=== PATIENT | male | born 1970 | race Caucasian/White ===

== ENCOUNTER 2024-02-24 02:29 | Emergency (ER) | payer OTHER, SELFPAY ==
[2024-02-24 02:31] VITALS: BP 176/117
--- NOTE | 2024-02-24 03:16 | ED.GENMED ---
History of Present Illness
<TONA Bethea - Last Filed: 02/24/24 04:15>
General
Chief Complaint: Alcohol Problem
Source: patient
Exam Limitations: none
Time Seen by Provider: 02/24/24 02:59
Nursing documentation reviewed up to this point in time: agreed with
History of Present Illness
History of Present Illness:
Pt is a 54 yo M w/ PMH of alcohol abuse and HTN who presents to the ED w/ withdraw symptoms. He states he woke up from sleep about an hour ago, was very anxious and felt like his BP was high. He states he has been an alcoholic for 'decades now' and
attempted to quit a month ago when he was given phenobarbital by his PCP. He says he was sober for about a week on the medication, but then stopped it and began to drink again. He checked himself into rehab on Friday in an attempt to get help but
left late Friday night because he was worried about working and making money. He states he had 4-5 beers yesterday evening before going to bed. He is mildly nauseous now but states it is probably due to feeling anxious. Pt denies tobacco/illicit
drug use/abuse. Pt denies fever, [place], v/d, chest pain, SOB, dyspnea, and abdominal pain.
Review of Systems
<TONA Bethea - Last Filed: 02/24/24 04:15>
Review of Systems
Allergies reviewed?: Yes
Constitutional: Reports chills; Denies fever or fatigue
Respiratory: Denies cough or trouble breathing
Cardiac: Denies chest pain or palpitations
ABD/GI: Denies abdominal pain, nausea, vomiting or diarrhea
Neurological: Denies dizzy or headache
Phy Exam
<TONA Bethea - Last Filed: 02/24/24 04:15>
General Physical Exam
General Presentation: moderate distress
General age: appears stated age
General Skin: warm and dry
General Habitus: normal
General Mental: alert and anxious
General Hydration: appears well hydrated
Cardiovascular Exam
Cardiovascular Exam: no murmur and tachycardia
Pulmonary Exam
Pulmonary Exam: lungs clear and no respiratory distress
Respiratory Effort: tachypnea
Cough: no cough
Gastrointestinal Exam
Gastrointestinal Exam: non tender, soft and non distended
Neurological Exam
Neurological Exam: alert and oriented x3
<Tyrese Nation, - Last Filed: 02/24/24 05:14>
Physical Exam
Physical Exam:
Physical Exam
General: Tremulous cooperative 54 male
Neck: Without jaundice
Heart: s1/s2 regular rate and rhythm, no murmur. equal radial pulses.
Lungs: no acute respiratory distress. clear bilaterally
Abdomen: Nontender
Neuro: alert and oriented. no focal neurological deficits
Skin: no rash
Psychiatric: well kept. interactive and cooperative
Extremities: no edema.
Scores
<TONA Bethea - Last Filed: 02/24/24 04:15>
Withdrawal Assessment of Alcohol
Total CIWA Score: 16
Alcohol Withdrawal Medication Recommendation: Equal to MSAS Score 8-11. Lorazepam 1-2mg IV NOW & re-assess q1hr
<Tyrese Nation DO - Last Filed: 02/24/24 05:14>
Withdrawal Assessment of Alcohol
Withdrawal Assessment Completed?: Yes
Nausea and Vomiting: Mild nausea with no vomiting
Tactile Disturbances: Very mild itching, pins and needles, burning or numbness
Tremor: Moderate, with patient's arms extended
Auditory Disturbances: Not present
Paroxysmal Sweats: No sweat visible
Visual Disturbances: Very mild sensitivity
Anxiety: Moderately anxious, or guarded, so anxiety is inferred
Headache, Fullness in Head: Very mild
Agitation: Moderately fidgety and restless
Orientation and clouding of sensorium: Oriented and can do serial additions
Total CIWA Score: 16
Alcohol Withdrawal Medication Recommendation: Equal to MSAS Score 8-11. Lorazepam 1-2mg IV NOW & re-assess q1hr
Course
<Jeanine Vasquez, [facility] - Last Filed: 02/24/24 04:15>
Orders/Labs/Results
Orders:
Orders
02/24/24 03:16
Lorazepam [Ativan] 1 mg IV NOW STA
02/24/24 03:43
Complete Blood Count/With Diff Urgent
Comprehensive Metabolic Panel Urgent
Magnesium Urgent
02/24/24 04:00
0.9% Sodium Chloride 1000 ml [Nss] 1,000 ml Mvi, Adult [Multivitamin] 10 ml Thiamine Injection 100 mg IV 250 mls/hr
Abnormal Lab Results
02/24/24
03:43
WBC 4.1 L 10^3/uL
(4.8-10.8)
RBC 4.04 L 10^6/uL
(4.70-6.10)
MCV 97.0 H fL
(80.0-94.0)
MCH 33.2 H pg
(27.0-31.0)
Monocytes % 12.6 H %
(1.7-9.3)
Potassium 5.5 H mmol/L
(3.5-5.1)
02/24/24 03:43
02/24/24 03:43
Vital Signs
Initial and Last Documented VS:
Initial Vital Signs
Temp Pulse Resp BP Pulse Ox
97.8 F 110 20 176/117 97
02/24/24 02:31 02/24/24 02:31 02/24/24 02:31 02/24/24 02:31 02/24/24 02:31
Last Documented Vital Signs
Temp Pulse Resp BP Pulse Ox
97.8 F 110 20 176/117 97
02/24/24 02:31 02/24/24 02:31 02/24/24 02:31 02/24/24 02:31 02/24/24 02:31
<Tyrese Nation, DO - Last Filed: 02/24/24 05:14>
Orders/Labs/Results
Orders:
Orders
02/24/24 03:16
Lorazepam [Ativan] 1 mg IV NOW STA
02/24/24 03:43
Complete Blood Count/With Diff Urgent
Comprehensive Metabolic Panel Urgent
Magnesium Urgent
02/24/24 04:00
0.9% Sodium Chloride 1000 ml [Nss] 1,000 ml Mvi, Adult [Multivitamin] 10 ml Thiamine Injection 100 mg IV 250 mls/hr
Abnormal Lab Results
02/24/24
03:43
WBC 4.1 L 10^3/uL
(4.8-10.8)
RBC 4.04 L 10^6/uL
(4.70-6.10)
MCV 97.0 H fL
(80.0-94.0)
MCH 33.2 H pg
(27.0-31.0)
Monocytes % 12.6 H %
(1.7-9.3)
Potassium 5.5 H mmol/L
(3.5-5.1)
02/24/24 03:43
02/24/24 03:43
Vital Signs
Initial and Last Documented VS:
Initial Vital Signs
Temp Pulse Resp BP Pulse Ox
97.8 F 110 20 176/117 97
02/24/24 02:31 02/24/24 02:31 02/24/24 02:31 02/24/24 02:31 02/24/24 02:31
Last Documented Vital Signs
Temp Pulse Resp BP Pulse Ox
97.8 F 110 20 176/117 97
02/24/24 02:31 02/24/24 02:31 02/24/24 02:31 02/24/24 02:31 02/24/24 02:31
<Tyrese Nation DO - Last Filed: 02/24/24 05:14>
MDM/Problems Addressed
Differential Diagnosis Includes:
Alcohol withdrawal alcohol delirium delirium tremens impending DTs
MDM/Problems Addressed:
Alcohol withdrawal
Chronic conditions affecting care:
Hypertension alcoholism
Acute Exacerbation and/or Progression of Chronic Illness:
Hypertension alcoholic
<TONA Bethea - Last Filed: 02/24/24 04:15>
*Critical Care Note
Total Time (30-74mins, 75-104mins- exclusive of procedures): Not Applicable
<TONA Bethea - Last Filed: 02/24/24 04:15>
Update Note
Update Note:
02/24/24 @ 04:13am: Pt reports he is feeling less anxious and jittery after administration of medication and beginning fluids; He is resting comfortably; will continue to monitor - AD
<Tyrese Nation DO - Last Filed: 02/24/24 05:14>
Update Note
Update Note:
02/24/24 @ 04:13am: Pt reports he is feeling less anxious and jittery after administration of medication and beginning fluids; He is resting comfortably; will continue to monitor - AD
5:15 AM update, patient feeling well, vital signs are normalized, he has prescription meds at home again offered evaluation for placement for rehab he states he would like to do it at home
ED Attending Note
<TONA Bethea - Last Filed: 02/24/24 04:15>
-
Portions of this chart may have been created with voice recognition software.� Occasional wrong word or��sound alike� substitutions may have occurred due to the inherent limitations of voice recognition software.
<Tyrese Nation, DO - Last Filed: 02/24/24 05:14>
ED Attending Note
Patient seen and examined by attending physician: Yes
ED Attending Note:
Seen with student examined independently 54-year-old male hypertensive alcoholic was in rehab left, has phenobarbital at home from his PCP today woke up felt panicky, blood pressure was up also was appears tremulous normal mental status, does not
appear to be intoxicated, will hydrate check electrolytes, give a dose of lorazepam I did offer suggest that he go back to rehab he politely declined states he needs to get to work he states that he is plugged in with facilities near his home
Discharge Plan
Departure
Patient Disposition: Home (Routine Discharge)
Date of Disposition: 02/24/24
Time of Disposition: 05:13
Patient with high blood pressure during this ER visit?: Yes
Condition: Good
Discharge Problem:
Alcohol withdrawal
Instructions: Alcohol Withdrawal (DC), BLOOD PRESSURE
Referrals:
PRIVATE,PHYSICIAN [Family Provider] -
Activity Restrictions/Additional Instructions:
Follow-up with the facilities which you have beem seen previously, your primary care provider
Return to the ER for worsening symptoms or any other concerns
Interventions
Interventions:
*Risk Screen - Suicide Last Done: 02/24/24 02:31
*General Assessment Last Done: 02/24/24 02:31
*Neglect/Abuse Screening Last Done: 02/24/24 02:31
*ED COVID-19 Vaccine History Last Done: 02/24/24 02:31
ED- Neurological Assessment Last Done: 02/24/24 03:58
ED-Psychological Assessment Last Done: 02/24/24 04:01
Discharge Date and Time
Print Language: FAROESE
[2024-02-24] MEDS: MULTIVITAMIN 1011 ML IV (03:30)
[2024-02-24] MEDS: MULTIVITAMIN 1011 MG IV (03:30)
[2024-02-24] MEDS: ATIVAN 1 MG IV (03:49)
[2024-02-24 03:54] LABS: % Basophils 1.2 % (0-2); % Eosinophils 2.9 % (0-6); % Immature Granulocytes 0.5 % (0-0.5); % Lymphocytes 31.2 % (20.5-51.1); % Monocytes 12.6 % (1.7-9.3); % Neutrophils 51.6 % (42.2-75.2); Absolute Basophils 0.1 10^3/uL (0-0.2); Absolute Eosinophils 0.1 10^3/uL (0-0.7); Absolute Lymphocytes 1.3 10^3/uL (1.2-3.4); Absolute Monocytes 0.5 10^3/uL (0.1-0.6); Absolute Neutrophils 2.1 10^3/uL (1.4-6.5); Hematocrit 39.2 % (39.0-52.0); Hemoglobin 13.4 g/dL (13.0-18.0); Mean Corp Hgb Conc. 34.2 g/dL (33.0-37.0); Mean Corpuscular Hgb 33.2 pg (27.0-31.0); Mean Platelet Volume 9.8 fL (7.4-10.4); Nucleated Red Blood Cells % 0 % (-); Platelet Count 248 10^3/uL (130-400); Red Blood Cell Count 4.04 10^6/uL (4.70-6.10); Red Cell Dist. Width 13.9 % (11.5-14.5); White Blood Cell Count 4.1 10^3/uL (4.8-10.8)
--- NOTE | 2024-02-24 03:58 | EDRN ---
called pharm for meds iv-miroslava nguyen
[2024-02-24 04:00] VITALS: BP 122/98
[2024-02-24 04:12] LABS: ALT (SGPT) 33 U/L (0-50); AST (SGOT) 32 U/L (17-59); Albumin 4.8 g/dl (3.5-5.0); Alkaline Phosphatase 75 U/L (38-126); Blood Urea Nitrogen 12 mg/dl (9-20); Calcium 10.2 mg/dl (8.4-10.2); Carbon Dioxide 28 mmol/L (22-30); Chloride 104 mmol/L (98-107); Glucose 93 mg/dl (70-99); Magnesium 2.2 mg/dl (1.6-2.3); Potassium 5.5 mmol/L (3.5-5.1); Sodium 140 mmol/L (135-145); Total Bilirubin 0.7 mg/dl (0.2-1.3); Total Protein 7.4 g/dl (6.3-8.2); eGFR > 60.00
[2024-02-24 04:30] VITALS: BP 129/95
[2024-02-24 05:00] VITALS: BP 117/86
[2024-02-24 05:20] VITALS: BMI 32.2
== END 2024-02-24 05:45 | disposition home or self-care (01) ==
LOC: EMR 02:29
PROVIDERS: EMERGENCY PHYSICIAN Emergency Medicine
DX: F10.139 Alcohol abuse with withdrawal, unspecified (principal); I10 Essential (primary) hypertension
CPT/HCPCS: 99284; 96365; 96366; 96375; 80053; 83735; 85025

== ENCOUNTER 2024-09-26 01:16 | Inpatient (IN) | payer OTHER, SELFPAY ==
[2024-09-25 21:48] VITALS: BP 132/91
[2024-09-25 22:09] VITALS: BP 116/93
[2024-09-25 22:14] VITALS: BMI 32.3
--- NOTE | 2024-09-25 22:17 | EDRN ---
Pt says he relapsed with alcohol few weeks ago after 5-6 month of sobriety. This week, pt tried to stop couple times without success. Pt has antabuse but says he cannot take it because it makes him very ill when he drinks. Pt knows the amount of
drinking he has been doing will have withdrawal. Pt drinking beer and liquor up to couple pints of liquor daily, 10-15 beers. Last drink few hours ago. Pt has pressure in his ears, 'anxiety is through the roof' nausea, ringing in ears and
headache. Pt knows if he goes to sleep he will wake and have to come here or drink again.
--- NOTE | 2024-09-25 22:23 | EDRN ---
'I don't want to have a stroke or a seizure' Pt says last time he got sober he did it with medication then stopped the medication. Pt's family doctor reportedly told pt if he relapses he 'will have to go somewhere.' Pt says 'I just want to cut if
off for good.' Pt says he has until Friday to go somewhere and be detoxed because he has to go to work.
[2024-09-25] MEDS: ATIVAN 2 MG IV (22:36)
--- NOTE | 2024-09-25 22:42 | EDRN ---
Noted old adhesive from pvc monitor on pt's R abdomen. Pt said he was in [facility] ED for alcohol withdrawal and admitted overnight. Pt says he was discharged home with no prescriptions and the withdrawal symptoms returned so he drank. This
was 'a few days' ago. Pt unsure exactly when he was there.
[2024-09-25 23:00] VITALS: BP 93/72
--- NOTE | 2024-09-25 23:21 | ED.GENMED ---
History of Present Illness
General
Chief Complaint: Alcohol Problem
Source: patient
Exam Limitations: none
Time Seen by Provider: 09/25/24 22:26
Nursing documentation reviewed up to this point in time: agreed with
History of Present Illness
History of Present Illness:
Note:
CHIEF COMPLAINT(S)
Alcohol withdrawal management
HISTORY OF PRESENT ILLNESS
The patient is a 54-year-old male with a history of alcohol use who presents for management of alcohol withdrawal symptoms. He reports abstaining from alcohol for six months, during which time he felt his life was 'very, very good.' However, two
weeks ago, he resumed drinking and states he 'drank to the point where cutting it off is just not safe.' He has been trying to manage his symptoms at home and has Antabuse (disulfiram) available. He requests assistance to safely manage his symptoms
over the next 24 to 48 hours.
The patient reports experiencing high blood pressure spikes during withdrawal, noting a recent episode of 180/110 mmHg at 2 a.m., accompanied by a pounding heart. He denies a history of confirmed seizures but mentions experiencing 'bad withdrawals'
which were 'borderline.' He expresses willingness to admit for monitoring and management of withdrawal symptoms.
CHRONIC MEDICAL CONDITIONS SIGNIFICANTLY AFFECTING CARE
Hypertension, currently experiencing high blood pressure during withdrawal.
SOCIAL DETERMINANTS AFFECTING HEALTH
The patient reports having no family support at home, which concerns him as he wakes up with elevated blood pressure at night. He also mentions being resourceful and proactive in seeking outpatient resources after previous experiences, acknowledging
a previous lack of engagement in ongoing care post-recovery.
MEDICATIONS
Antabuse (disulfiram) is available at home.
REVIEW OF SYSTEMS
- Cardiovascular: Reports episodes of high blood pressure and pounding heart during withdrawal.
PHYSICAL EXAM
General: Alert, no acute distress.
Skin: Warm, dry.
Head: Normocephalic, atraumatic.
Neck: Supple, trachea midline.
Eye, Ears, Nose, Mouth, and Throat: Oral mucosa moist.
Cardiovascular: Normal peripheral perfusion, No edema.
Respiratory: Respirations are non-labored.
Gastrointestinal: Abdomen nondistended.
Back: Normal range of motion, Normal alignment.
Musculoskeletal: Normal ROM, normal strength.
Neurological: Alert and oriented to person, place, time, and situation, No focal neurological deficit observed.
Psychiatric: Cooperative, appropriate mood & affect.
PLAN
1. Admit the patient for monitoring and management of alcohol withdrawal symptoms.
2. Administer intravenous fluids to maintain hydration and raise blood pressure slightly.
3. Consult [facility] recovery and addiction resources to establish a sustainable outpatient plan post-discharge.
4. Monitor blood pressure closely, and address hypertensive episodes as needed.
5. Consider the use of medications for acute withdrawal symptoms under close supervision.
DIFFERENTIAL DIAGNOSIS
The Differential Diagnosis includes, in no particular order and is not limited to:
1. Alcohol withdrawal syndrome
2. Essential hypertension
3. Alcohol-induced hypertension
4. Anxiety disorder
5. Panic attacks
6. Essential tremor
7. Cardiac arrhythmia
8. Gastroesophageal reflux disease (GERD)
9. Sleep apnea
10. Acute stress reaction
Disposition:
SUMMARY OF ENCOUNTER
The patient is a 54-year-old male presenting for management of alcohol withdrawal symptoms after resuming drinking two weeks ago following a six-month period of abstinence. He expressed concern about experiencing withdrawal symptoms without hospital
support due to a lack of social support at home. There is no history of confirmed alcohol withdrawal seizures, but the patient is apprehensive about withdrawal management at home.
DISPOSITION
Admit
ASSESSMENT
Alcohol withdrawal syndrome requiring inpatient monitoring and support for safe management.
PLAN
1. Admit the patient for monitoring and management of alcohol withdrawal symptoms.
2. Administer intravenous fluids to maintain hydration.
3. Closely monitor blood pressure and manage hypertensive episodes as needed.
4. Consult [facility] recovery and addiction resources to establish a sustainable outpatient plan post-discharge.
MEDICAL DECISION MAKING
1. Number and Complexity of Problems Addressed: Chronic conditions affecting care include alcohol withdrawal syndrome and hypertension. The differential diagnosis includes:
- Alcohol withdrawal syndrome
- Essential hypertension
- Alcohol-induced hypertension
- Anxiety disorder
- Panic attacks
- Essential tremor
- Cardiac arrhythmia
- Gastroesophageal reflux disease (GERD)
- Sleep apnea
- Acute stress reaction
2. Data:
- Category 1: There was a discussion on the patients condition and the need to admit for monitoring.
- Category 3: The hospitalist service was consulted for the admission plan.
3. Risk: The decision to admit the patient for inpatient care was made due to the moderate to high risk of complications from alcohol withdrawal, including potential severe hypertension and withdrawal symptoms that could lead to seizures or other
serious health issues.
DIAGNOSIS
1. F10.239 - Alcohol withdrawal, uncomplicated
2. I10 - Essential (primary) hypertension
Phy Exam
Physical Exam
Physical Exam:
.
Scores
Withdrawal Assessment of Alcohol
Withdrawal Assessment Completed?: Yes
Nausea and Vomiting: Mild nausea with no vomiting
Tactile Disturbances: Very mild itching, pins and needles, burning or numbness
Tremor: Moderate, with patient's arms extended
Auditory Disturbances: Not present
Paroxysmal Sweats: Beads of sweat obvious on forehead
Visual Disturbances: Not present
Anxiety: Mild anxiety
Headache, Fullness in Head: Mild
Agitation: Moderately fidgety and restless
Orientation and clouding of sensorium: Oriented and can do serial additions
Total CIWA Score: 17
Alcohol Withdrawal Medication Recommendation: Equal to MSAS Score 8-11. Lorazepam 1-2mg IV NOW & re-assess q1hr
Course
Orders/Labs/Results
Orders:
Orders
09/25/24 22:26
Lorazepam [Ativan] 2 mg IV NOW STA
09/25/24 23:20
Lorazepam [Ativan] 1 mg IV NOW STA
09/25/24 23:23
Alcohol Urgent
Complete Blood Count/With Diff Urgent
Comprehensive Metabolic Panel Urgent
09/26/24 00:54
EKG [Electrocardiogram (*1)] Urgent
Reason for Study: Tachycardia
09/26/24 01:00
0.9% Sodium Chloride 1000 ml [Nss] 1,000 ml Mvi, Adult [Multivitamin] 10 ml Thiamine Injection 100 mg IV 250 mls/hr
09/26/24 01:01
Admit/Transfer Patient As Directed
Co-Sign Provider:
Level of Care: Inpatient admission
Assign to:: Telemetry
Physician / Group: Bulmaro
Diagnosis: Alcohol Withdrawal
Reason for Telemetry: Arrhythmia
Date to Stop Telemetry: 09/29/24
Time to Stop Telemetry: 11:00
Reason for Hospitalization: Alcohol Withdrawal
Expected length of stay greater than two midnights?: Yes
ELOS- Estimated Length of Stay in days: 3
I certify the patient meets the requirements for IP care: Yes
PRN Pain Medication Management As Directed
May give lesser potent ordered pain med per pt: Yes
preference::
Protocol:: Medication orders for pain may be administered in a
manner that supports deferring to patient preference
when the pt is:
- Requesting an ordered lesser potent pain medication.
Least to most potent pain medications are defined
as: acetaminophen < NSAID < tramadol < opioids
(morphine, oxycodone, hydromorphone).
- Requesting a lesser dose of the same medication IF
ORDERED.
- Requesting a less intrusive route of administration
if both routes are prescribed by the provider (PO <
IV).
09/26/24 01:02
Code Status As Directed
Resuscitation Status: Full Code
09/26/24 01:50
0.9% Sodium Chloride [Nss (Preservative Free)] See Protocol IV PRN PRN
Acetaminophen [Tylenol] 650 mg PO Q4HPRN PRN
FOLic ACID [Folvite] 1 mg 0.9% Sodium Chloride 50 ml [Nss] 50 ml IV DAILYPRN
Lorazepam [Ativan] 1 mg IV Q1HPRN PRN
Lorazepam [Ativan] 1 mg PO Q2HPRN PRN
Lorazepam [Ativan] 2 mg IV Q1HPRN PRN
Ondansetron Injectable [Zofran] 4 mg IV Q6HPRN PRN
09/26/24 01:50
Case Management Consult Once
Case Management Consult: Other
Requested By:: NURSING
Comment: Substance abuse counseling
DIETARY IP CONSULT Routine
Reason for Consult: Nutrition support, possible refeeding guidelines
Urinalysis Routine
Urine Drug Abuse Screen Routine
Activity As Directed
Activity Level: Ambulate
EKG with chest pain [ECG as needed] As Directed
ECG as needed for:: Chest Pain
I/O [Intake/ Output] As Directed
Frequency: Per unit guidelines
MSAS SCORE As Directed
MSAS Score 0-4: Repeat MSAS every 2 hours until 0-4 for three consecutive assessments, then every 4 hours x 48
hours.
MSAS Score 5-7: For MILD withdrawl symptoms. Repeat MSAS and RASS every 2 hours
MSAS Score 8-11: For MODERATE withdrawal symptoms. Repeat MSAS and RASS every 1 hour. Consider ICU or IMU
level of care.
MSAS Score > 11: For SEVERE withdrawal symptoms. Repeat MSAS and RASS every 1 hour. Notify provider, consider
ICU level of care.
MSAS Additional Instructions: If no improvement or no decrease in score from severe to moderate within 12
hours, consult psychiatry
MSAS Notify Provider: Notify provider if patient requires more than 10 mg of Lorazepam in eight hour period.
Pneumatic Compression Sleeves As Directed
Type: Knee high
Precautions As Directed
Type of Precautions: Seizure
Vital Signs As Directed
Frequency: Per unit guidelines
Weight As Directed
Frequency: Daily
Oxygen Therapy [O2 Therapy] [RESP] Routine
Titrate/Wean O2 to maintain O2 sat greater than (%): 94
DX Deep Vein Thrombosis Video Routine
09/26/24 02:00
Lactated Ringers [Lr] 1,000 ml IV 150 mls/hr
09/26/24 06:00
EKG [Electrocardiogram (*1)] IN AM
Reason for Study: Chest Pain
Clear Liquid
At Your Request: Full Participation
Complete Blood Count/No Diff IN AM
Magnesium IN AM
Phosphorus IN AM
09/26/24 08:00
FOLic ACID [Folvite] 1 mg PO DAILY
Pantoprazole [Protonix IV] 40 mg IV DAILY
Thiamine Injection 200 mg IV Q12
09/29/24 08:00
Thiamine HCl [Vitamin B1] 100 mg PO BID
09/29/24 11:00
DC Protocol for Telemetry ONCE
Abnormal Lab Results
09/26/24
00:17
MCH 32.6 H pg
(27.0-31.0)
Monocytes % 9.5 H %
(1.7-9.3)
09/26/24 00:17
09/26/24 00:17
Vital Signs
Initial and Last Documented VS:
Initial Vital Signs
Temp Pulse Resp BP Pulse Ox
98.1 F 114 15 132/91 94
09/25/24 21:48 09/25/24 21:48 09/25/24 21:48 09/25/24 21:48 09/25/24 21:48
Last Documented Vital Signs
Temp Pulse Resp BP Pulse Ox
97.7 F 103 20 134/93 95
09/26/24 02:02 09/26/24 02:02 09/26/24 02:02 09/26/24 02:02 09/26/24 02:02
*Pulse Oximetry
SaO2: 94
Oxygen Mode of Delivery: Room air
Patient hypoxic: no
*Critical Care Note
Total Time (30-74mins, 75-104mins- exclusive of procedures): Not Applicable
ED Attending Note
-
Portions of this chart may have been created with voice recognition software.� Occasional wrong word or��sound alike� substitutions may have occurred due to the inherent limitations of voice recognition software.
Discharge Plan
Departure
Patient Disposition: Admit
Date of Disposition: 09/25/24
Time of Disposition: 23:23
Admit to: Telemetry
Presentation/result/management discussed w/ accepting MD/DO: Hospitalist
Condition: Good
Discharge Problem:
Alcohol withdrawal
Interventions
Interventions:
*Risk Screen - Suicide Last Done: 09/26/24 02:04
*General Assessment Last Done: 09/25/24 21:48
*Neglect/Abuse Screening Last Done: 09/25/24 21:48
*ED- Fall Risk Assessment Last Done: 09/25/24 22:14
*Nursing Disposition Last Done: 09/26/24 01:46
ED- Neurological Assessment Last Done: 09/25/24 22:27
Discharge Date and Time
Discharge Date/Time: 09/26/24 01:46
[2024-09-26] VITALS (9 sets, daily range): BP systolic 102–155; BP diastolic 62–104; BMI 32.0; BMI 32.1
--- NOTE | 2024-09-26 00:08 | EDRN ---
Called pharmacy for IVF
[2024-09-26] MEDS: ATIVAN 1 MG IV ×2 (00:17→16:50)
[2024-09-26] MEDS: MULTIVITAMIN 1011 MG IV (00:33)
[2024-09-26] MEDS: MULTIVITAMIN 1011 ML IV (00:33)
[2024-09-26 00:43] LABS: ALT (SGPT) 42 U/L (0-50); AST (SGOT) 30 U/L (17-59); Albumin 4.5 g/dl (3.5-5.0); Alkaline Phosphatase 66 U/L (38-126); Blood Urea Nitrogen 14 mg/dl (9-20); Calcium 9.1 mg/dl (8.4-10.2); Carbon Dioxide 23 mmol/L (22-30); Chloride 107 mmol/L (98-107); Estimated Creatinine Clearance > 125 ml/min; Glucose 97 mg/dl (70-99); Potassium 3.9 mmol/L (3.5-5.1); Sodium 136 mmol/L (135-145); Total Protein 7.0 g/dl (6.3-8.2); eGFR > 60.00
--- NOTE | 2024-09-26 01:04 | HPS.HSE ---
Family Physician
-
Family Physician: * NONE
Chief Complaint
-
Alcohol Withdrawal
History of Present Illness
Patient is a 54y M with PMH significant for hypertension and alcohol use disorder who presents to ED complaining of alcohol withdrawal symptoms. Patient states that he had been sober for about 6 months. Approximately 3 weeks ago he started
drinking again. He has been drinking approximately 18 beers and 1 bottle of vodka daily. his last drink was about 6 hours ago.
He reports nausea, tremulousness and anxiety that started within an hour of his last drink.
He has had similar symptoms in the past.
Medical History
Past Medical History
Past Medical History: Reports Other
Additional Past Medical History:
Hypertension
Alcohol Use Disorder
Past Surgical History: Reports Other
Additional Past Surgical History:
Knee Arthroscopy
ACL Repair
Cardiac Cath (clean)
Social History
Tobacco: Non-smoker
Alcohol: Daily
Drug: None
Family History
Family History: Other (Father: CVA at age 48.)
Allergies / Home Medications
Allergies reflects when Allergies were last updated in [employer].
Home Medications with original date entered in [employer]
Allergy/Medication List:
Allergies
Allergy/AdvReac Type Severity Reaction Status Date / Time
levofloxacin (From Levaquin) Allergy Rash Verified 09/25/24 22:16
Home Medications
losartan 100 mg-hydrochlorothiazide 25 mg tablet 1 tab PO DAILY 09/25/24
testosterone 1.62 % (20.25 mg/1.25 gram) transdermal gel packet 1 packet transdermal DAILY 09/25/24
Review of Systems
-
History Source: Patient
A 12 point ROS was completed and negative except as noted: Yes
Constitutional: Reports Fatigue; Denies Fever or Chills
EENT: Denies Sore Throat or Runny Nose
Respiratory: Denies Cough or Trouble Breathing
Cardiac: Reports Palpitations; Denies Chest Pain
Abdomen/GI: Reports Nausea; Denies Abdominal Pain, Vomiting, Diarrhea or Constipated
: Denies Dysuria or Frequency
Musculoskeletal: Denies Joint Pain or Edema
Neurological: Reports Headache; Denies Dizzy
Psych: Reports Anxiety; Denies Depression
Physical Exam
Vital Signs
Vital Signs
Temp Pulse Resp BP Pulse Ox
98.1 F 95 19 102/62 94
09/25/24 21:48 09/26/24 00:00 09/26/24 00:00 09/26/24 00:00 09/25/24 23:23
Physical Exam
General: Other (54y M in mild distress due to nausea, tremulousness.)
HEENT: Moist mucous membranes and PERRLA
Respiratory: Clear; No Wheezes, Rales or Rhonchi
Cardiac: S1/S2 and Regular Rhythm; No Murmur
GI: Soft, Non Tender, Non Distended and Normal Bowel Sounds
Musculoskeletal: No Clubbing, No Cyanosis and No Edema
Neuro: AO x 3 and Other (Mildly tremulous.)
Laboratory Results
-
09/26/24 00:17
Laboratory Results
Total Bilirubin 0.6 mg/dl (0.2-1.3) 09/26/24 00:17
AST 30 U/L (17-59) 09/26/24 00:17
ALT 42 U/L (0-50) 09/26/24 00:17
Alkaline Phosphatase 66 U/L (38-126) 09/26/24 00:17
Impression/Plan
-
A/P: Patient is a 54y M with PMH significant for alcohol use disorder and hypertension who presents to ED for symptoms of alcohol withdrawal.
Alcohol Use Disorder
Alcohol Withdrawal Syndromes
- Admit for further evaluation and treatment.
- MSAS protocol with PRN BZDs.
- IVF support, MVI, thiamine, etc.
- Follow for clinical improvement.
- Patient indicates that he is not interested in inpatient rehab options.
- Previously worked with his PCP using Antabuse, etc to achieve / maintain sobriety.
Benign Hypertension
- BP on the lower side at present.
- Hold home meds for now and resume when appropriate.
DVT Prophylaxis: SCDs
Code Status: Full
[2024-09-26 01:21] LABS: Hematocrit 43.6 % (39.0-52.0); Hemoglobin 15.5 g/dL (13.0-18.0); Mean Corp Hgb Conc. 35.6 g/dL (33.0-37.0); Mean Corpuscular Volume 91.8 fL (80.0-94.0); Nucleated Red Blood Cells % 0.4 % (-); Platelet Count 183 10^3/uL (130-400); Red Cell Dist. Width 11.8 % (11.5-14.5)
--- NOTE | 2024-09-26 02:15 | PTCARENOTE ---
Patient from the ED arrived on a stretcher and ambulated to the bedside with min assist. AAOx3, he was assessed and oriented to the unit. He has a headache; IVF infusing. Patient verbalized an understanding to ring for all transfers. Patient
demonstrated how to use call monsalve. Call monsalve in reach. Will reach out to covering provider about headache.
[2024-09-26] MEDS: ATIVAN 1 MG PO ×5 (03:03→23:20)
[2024-09-26] MEDS: FIORICET 1 TAB PO (03:03)
[2024-09-26] MEDS: LR 1000 IV ×2 (04:17→10:25)
--- NOTE | 2024-09-26 06:19 | PTCARENOTE ---
EKG results reported to covering provider.
[2024-09-26 06:39] LABS: Urine Character Clear (Clear)
[2024-09-26 06:50] LABS: Hematocrit 43.1 % (39.0-52.0); Hemoglobin 15.1 g/dL (13.0-18.0); Mean Corp Hgb Conc. 35.0 g/dL (33.0-37.0); Mean Corpuscular Volume 93.9 fL (80.0-94.0); Platelet Count 161 10^3/uL (130-400); Red Cell Dist. Width 11.9 % (11.5-14.5)
[2024-09-26 07:10] LABS: ALT (SGPT) 41 U/L (0-50); AST (SGOT) 26 U/L (17-59); Albumin 3.8 g/dl (3.5-5.0); Alkaline Phosphatase 64 U/L (38-126); Blood Urea Nitrogen 14 mg/dl (9-20); Calcium 8.7 mg/dl (8.4-10.2); Carbon Dioxide 28 mmol/L (22-30); Chloride 106 mmol/L (98-107); Estimated Creatinine Clearance 125 ml/min; Glucose 95 mg/dl (70-99); Magnesium 1.9 mg/dl (1.6-2.3); Potassium 4.5 mmol/L (3.5-5.1); Sodium 137 mmol/L (135-145); Total Protein 6.3 g/dl (6.3-8.2); eGFR > 60.00
[2024-09-26] MEDS: TORADOL 15 MG IV (08:50)
[2024-09-26] MEDS: NSS (PRESERVATIVE FREE) 10 ML IV (08:50)
[2024-09-26] MEDS: THIAMINE INJECTION 200 MG IV ×2 (08:50→20:00)
[2024-09-26] MEDS: PROTONIX IV 40 MG IV (08:50)
[2024-09-26] MEDS: FOLVITE 1 MG PO (08:51)
[2024-09-26] MEDS: IMITREX 50 MG PO (10:24)
[2024-09-26] MEDS: COZAAR 50 MG PO (11:41)
--- NOTE | 2024-09-26 14:24 | CM ---
Initial assessment completed with pt at bedside.
Pt is a 54yr old male admitted with alcohol dependence and withdrawal
At baseline, pt lives alone in a multi level home with 2 steps to enter. Pt works, drives, and is physically active.
Pt self reports that he had been sober for 6 months, and recently has had life changes that led to a relapse over the last 3 weeks to a month, and needs assistance with withdrawal and support.
Pt comments on his desire to attend AA and outpatient therapy services. Pt talks about [facility], and is familiar with AA meetings close by. SW offered a call to [facility], which pt agreed to. Referral placed with Vania.
Pt not likely to agree to inpatient services due to his plan to return to work, but would maybe benefit.
PCP; pt declines to provide PCP due to his relapse. His PCP was previously involved and credits him to his success. Pt would like to not involve him.
Pharm; [facility]
PLAN; [facility] Referral and support. Likely dc to home with outpt resources.
[2024-09-26] MEDS: ZOFRAN 4 MG IV (16:49)
--- NOTE | 2024-09-26 19:53 | PTCARENOTE ---
Patient AAOX3, ambulatory in room, pleasant and cooperative with care. MSAS protocol in place, PRN Ativan administered per protocol throughout shift - see MAR and MSAS charting. Patient with mild tremors, occ nausea and anxiety that he states the
PRN Ativan has been helping relieve. Patient on regular diet and okay to shower per MD, ringing appropriately.
[2024-09-26] MEDS: TYLENOL 650 MG PO (21:17)
[2024-09-26] MEDS: FIORICET 2 TAB PO (22:25)
[2024-09-27] MEDS: LR IV (00:07)
[2024-09-27] MEDS: ZOFRAN 4 MG IV (01:07)
[2024-09-27] MEDS: ATIVAN 1 MG PO ×4 (01:07→09:11)
[2024-09-27] MEDS: COZAAR 50 MG PO (02:31)
[2024-09-27] MEDS: VALIUM INJECTION 2 MG IV (02:36)
[2024-09-27 03:17] VITALS: BP 148/103
[2024-09-27 07:00] VITALS: BP 151/104
[2024-09-27 07:41] LABS: Hematocrit 43.5 % (39.0-52.0); Hemoglobin 14.9 g/dL (13.0-18.0); Mean Corp Hgb Conc. 34.3 g/dL (33.0-37.0); Mean Corpuscular Volume 94.4 fL (80.0-94.0); Platelet Count 176 10^3/uL (130-400); Red Cell Dist. Width 11.9 % (11.5-14.5)
[2024-09-27 08:10] LABS: Blood Urea Nitrogen 13 mg/dl (9-20); Calcium 8.7 mg/dl (8.4-10.2); Carbon Dioxide 24 mmol/L (22-30); Chloride 109 mmol/L (98-107); Estimated Creatinine Clearance 113 ml/min; Glucose 92 mg/dl (70-99); Potassium 4.5 mmol/L (3.5-5.1); Sodium 137 mmol/L (135-145); eGFR > 60.00
[2024-09-27] MEDS: PROTONIX IV 40 MG IV (08:59)
[2024-09-27] MEDS: THIAMINE INJECTION 200 MG IV (08:59)
[2024-09-27] MEDS: FOLVITE 1 MG PO (08:59)
[2024-09-27] MEDS: NSS (PRESERVATIVE FREE) 10 ML IV (08:59)
--- NOTE | 2024-09-27 10:58 | W.PN.HOSP.TC ---
Addendum entered and electronically signed by Parmjit Yepez MD 09/27/24 14:52:
[id number]
Original Note:
Today's Communication/Plan
-
patient desires to leave; has not used ativan PO often
F/u CBC and CMP outpatient
PCP within 1 week
Assessment / Plan
Assessment / Plan
Physical Exam
General: NAD
HEENT: Moist mucous membranes and PERRLA
Respiratory: Clear; No Wheezes, Rales or Rhonchi
Cardiac: S1/S2 and Regular Rhythm; No Murmur
GI: Soft, Non Tender, Non Distended and Normal Bowel Sounds
Musculoskeletal: No Clubbing, No Cyanosis and No Edema
Neuro: AO x 3 , Calm
A/P: Patient is a 54y M with PMH significant for alcohol use disorder and hypertension who presents to ED for symptoms of alcohol withdrawal.
Alcohol Use Disorder
Alcohol Withdrawal Syndromes
- Admit for further evaluation and treatment.
- Patient desires to leave, states he feels better;
- Patient indicates that he is not interested in inpatient rehab options.
- Previously worked with his PCP using Antabuse, etc to achieve / maintain sobriety.
- CM engaged in dc planning and resources
Benign Hypertension
- resume bp meds
DVT Prophylaxis: SCDs
Code Status: Full
More than 30 minutes spent in discharge including
Final examination of the patient
Summarizing hospital stay
Instructions for continuing care to all relevant caregivers
Preparation of discharge records, prescriptions, and referral forms
Total time spent (in minutes): 36
Anticipated Discharge: Today
Subjective/Interval History
-
Date of Service: September 27, 2024
Patient feels better, desires to go
Objective Data
-
Labs:
Laboratory Results
09/27/24
07:05
WBC 5.2
Hgb 14.9
Hct 43.5
Plt Count 176
Sodium 137
Potassium 4.5
Chloride 109 H
Carbon Dioxide 24
BUN 13
Creatinine 1.0
Glucose 92
Calcium 8.7
Vital Signs:
Vital Signs
Temp Pulse Resp BP Pulse Ox
97.4 F 95 20 151/104 95
09/27/24 07:00 09/27/24 07:00 09/27/24 07:00 09/27/24 07:00 09/27/24 07:00
I&O
09/26/24 09/27/24 09/28/24
06:59 06:59 06:59
Intake Total 480 / 480 2380 / 2380
Output Total 400 / 400
Balance 80 / 80 2380 / 2380
Review of Systems
-
History Source: Patient
All other systems: Not reviewed unless documented
Data Reviewed
-
Labs: Labs Reviewed by me
[2024-09-27 11:00] VITALS: BP 142/102
--- NOTE | 2024-09-27 11:00 | PTCARENOTE ---
Patient anxious, agitates. Patient states, 'I want to leave AMA. I know my body. I can withdraw at home.I won't have a seizure.' Physician made aware. Patient had dose of Ativan for MSAS of 6. Patient for discharge at 3pm. Patient agreed to stay
until 3pm, but refused to keep tele on.
--- NOTE | 2024-09-27 11:04 | W.DS.TRANS ---
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
-
Discharge Instructions:
Discharge Diagnosis/Procedures
Alcohol Use Disorder
Alcohol Withdrawal Syndromes
Diet Low Cholesterol,Low Fat
Blood Work cbc and cmp in 1 week with pcp
Instructions:
Stand-Alone Forms:
Changes to Home Medications: No
Discharge Medications:
DC Medications w/original date entered in [email or web address]
losartan 100 mg-hydrochlorothiazide 25 mg tablet 1 tab PO DAILY Blood Pressure 09/25/24
testosterone 1.62 % (20.25 mg/1.25 gram) transdermal gel packet 1 packet transdermal DAILY Hormonal Agent 09/25/24
Home Medication Changes
no
Pending Results: Yes
--- NOTE | 2024-09-27 12:40 | CM ---
Reviewed the chart notes and spoke with the patient at the bedside. Patient confirmed BRANDO reached out to the patient. Patient will drive self home today. His car is in the parking lot. CM continues to be available to patient/family and is
monitoring medical plan for needs at discharge.
Plan: Discharge to home with no additional needs identified at this time.
--- NOTE | 2024-09-27 14:20 | W.DS.TRANS ---
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
-
Discharge Instructions:
Discharge Diagnosis/Procedures
Alcohol Use Disorder
Alcohol Withdrawal Syndromes
Diet Low Cholesterol,Low Fat
Blood Work cbc and cmp in 1 week with pcp
Instructions:
Stand-Alone Forms:
Changes to Home Medications: No
Discharge Medications:
DC Medications w/original date entered in [email or web address]
losartan 100 mg-hydrochlorothiazide 25 mg tablet 1 tab PO DAILY Blood Pressure 09/25/24
testosterone 1.62 % (20.25 mg/1.25 gram) transdermal gel packet 1 packet transdermal DAILY Hormonal Agent 09/25/24
Home Medication Changes
Pending Results: No
[2024-09-27 14:58] VITALS: BP 147/105
--- NOTE | 2024-09-27 15:06 | PTCARENOTE ---
Patient at 1500. Physician notified and at bedside. Daughter at bedside.
== END 2024-09-27 15:05 | disposition home or self-care (01) | DRG 897 ==
LOC: 2 NORTH 01:16
PROVIDERS: Hospitalist; ADMITTING PHYSICIAN Hospitalist; ATTENDING PHYSICIAN Internal Medicine; EMERGENCY PHYSICIAN Student in an Organized Health Care Education/Training Program
DX: F10.230 Alcohol dependence with withdrawal, uncomplicated (principal); I10 Essential (primary) hypertension; Z60.8 Other problems related to social environment; Z82.3 Family history of stroke; Z88.1 Allergy status to other antibiotic agents
CPT/HCPCS: 80048; 80053; 80306; 80307; 81003; 82077; 82248; 83735; 84100; 85025; 85027; 93005; 96365; 96375; 96376; 99284

== ENCOUNTER 2025-03-10 02:46 | Emergency (ER) | payer OTHER, SELFPAY ==
[2025-03-10 02:54] VITALS: BP 163/107
[2025-03-10] MEDS: ZOFRAN ODT (ORALLY DISINTEGRATING) 4 MG PO (03:14)
[2025-03-10 03:25] LABS: Hematocrit 43.1 % (39.0-52.0); Hemoglobin 15.5 g/dL (13.0-18.0); Mean Corp Hgb Conc. 36.0 g/dL (33.0-37.0); Mean Corpuscular Volume 91.3 fL (80.0-94.0); Nucleated Red Blood Cells % 0 % (-); Platelet Count 217 10^3/uL (130-400); Red Cell Dist. Width 12.0 % (11.5-14.5)
[2025-03-10 03:50] LABS: ALT (SGPT) 68 U/L (0-50); AST (SGOT) 44 U/L (17-59); Albumin 4.7 g/dl (3.5-5.0); Alkaline Phosphatase 76 U/L (38-126); Blood Urea Nitrogen 7 mg/dl (9-20); Calcium 9.0 mg/dl (8.4-10.2); Carbon Dioxide 26 mmol/L (22-30); Chloride 104 mmol/L (98-107); Glucose 105 mg/dl (70-99); Potassium 3.7 mmol/L (3.5-5.1); Sodium 140 mmol/L (135-145); Total Protein 7.2 g/dl (6.3-8.2); eGFR > 60.00
[2025-03-10 03:58] VITALS: BP 165/105
[2025-03-10 04:11] VITALS: BP 158/100
[2025-03-10] MEDS: ATIVAN 1 MG PO (06:08)
[2025-03-10 06:10] VITALS: BP 171/110
--- NOTE | 2025-03-10 07:42 | ED.GENMED ---
History of Present Illness
<Kaley Burks PA-C - Last Filed: 03/10/25 18:43>
General
Chief Complaint: Alcohol Problem
Source: patient
Exam Limitations: none
Time Seen by Provider: 03/10/25 07:42
Nursing documentation reviewed up to this point in time: agreed with
History of Present Illness
History of Present Illness:
Patient is a 55-year-old male with history of alcohol abuse who presents to the emergency department via EMS with concerns of alcohol withdrawal. Patient reports that over the past 4 days he has been drinking 'excessively' describing upwards of 18
drinks per day, a mix of both beer/hard liquor. By the time my assessment�she reports it has been approximately 7 hours since his last drink. He states that last night he was extremely anxious and nauseous prompting call to [phone] for transportation
to the emergency department. By my assessment�patient has received a dose of p.o. Ativan/Zofran. He states he still feels anxious and somewhat tremulous with very mild headache. He denies any hallucinations or diaphoresis. He has not had any
episodes of vomiting.
Patient states that prior to the past 4 days he has been taking phenobarbital for 44 days and he remains sober. Phenobarbital has been prescribed by his primary care provider.
Patient does report history of severe alcohol withdrawal however denies any past history of seizures.
He is not currently interested in detox/inpatient rehab and states he has previously found success with AA meetings.
Review of Systems
<Kaley Burks PA-C - Last Filed: 03/10/25 18:43>
Review of Systems
Allergies reviewed?: Yes
All Other Systems: ROS reviewed and negative except as documented in HPI and ROS
Phy Exam
<Kaley Burks PA-C - Last Filed: 03/10/25 18:43>
Physical Exam
Physical Exam:
Vitals: Hypertensive and tachycardic. Afebrile
General: Patient is anxious appearing
Skin: Warm and dry, no rashes or lesions
Head: Normocephalic, atraumatic
Eyes: Sclera nonicteric. EOMs intact. No nystagmus.
Throat: Protecting airway
Neck: Normal ROM, no cervical spine tenderness, no meningismus
Cardiac: Tachycardic, normal rhythm, no murmurs.
Pulm: Normal respiratory effort. Lungs clear bilaterally
Abdomen: No abdominal tenderness.
Extremities: Mild tremor of upper extremities and at rest. No evidence of cyanosis or edema
Neuro: AAOx3. CN II-XII grossly intact. No focal neurologic deficits.
Psychiatric: Anxious.
Scores
<Kaley Burks PA-C - Last Filed: 03/10/25 18:43>
Withdrawal Assessment of Alcohol
Withdrawal Assessment Completed?: Yes
Nausea and Vomiting: Mild nausea with no vomiting
Tactile Disturbances: None
Tremor: Not visible, but can be felt fingertip to fingertip
Auditory Disturbances: Not present
Paroxysmal Sweats: No sweat visible
Visual Disturbances: Not present
Anxiety: Mild anxiety
Headache, Fullness in Head: Very mild
Agitation: Moderately fidgety and restless
Orientation and clouding of sensorium: Oriented and can do serial additions
Total CIWA Score: 8
Alcohol Withdrawal Medication Recommendation: Equal to MSAS Score 5-7. Lorazepam 1mg IV or PO NOW & re-assess q2hrs
<Kan Magdaleno MD - Last Filed: 03/10/25 10:50>
Withdrawal Assessment of Alcohol
Total CIWA Score: 8
Alcohol Withdrawal Medication Recommendation: Equal to MSAS Score 5-7. Lorazepam 1mg IV or PO NOW & re-assess q2hrs
Course
<Kaley Burks PA-C - Last Filed: 03/10/25 18:43>
Orders/Labs/Results
Orders:
Orders
03/10/25 03:11
Ondansetron Orally Disint [Zofran Odt (Orally Disintegrating)] 4 mg .ROUTE .STK-MED ONE
03/10/25 03:14
CMP [Comprehensive Metabolic Panel] Urgent
Complete Blood Count/With Diff Urgent
Ondansetron Orally Disint [Zofran Odt (Orally Disintegrating)] 4 mg PO NOW STA
03/10/25 06:07
Lorazepam [Ativan] 1 mg .ROUTE .STK-MED ONE
03/10/25 06:08
Lorazepam [Ativan] 1 mg PO NOW STA
03/10/25 07:56
0.9% Sodium Chloride 1000 ml [Nss] 1,000 ml Mvi, Adult [Multivitamin] 10 ml Thiamine Injection 100 mg IV 250 mls/hr
Lorazepam [Ativan] 1 mg IV NOW STA
03/10/25 09:00
0.9% Sodium Chloride 1000 ml [Nss] 1,000 ml Mvi, Adult [Multivitamin] 10 ml Thiamine Injection 100 mg IV 250 mls/hr
03/10/25 10:55
Lorazepam [Ativan] 1 mg IV NOW STA
03/10/25 11:03
Alcohol Urgent
Drug Screen, Urine [Urine Drug Abuse Screen] Urgent
Date Specimen was Collected: 03/10/25
Time Specimen was Collected: 11:01
Abnormal Lab Results
03/10/25 03/10/25
03:14 11:03
MCH 32.8 H pg
(27.0-31.0)
BUN 7 L mg/dl
(9-20)
Glucose 105 H mg/dl
(70-99)
ALT 68 H U/L
(0-50)
Ur Barbiturates Screen Positive H
(Negative)
03/10/25 03:14
03/10/25 03:14
Vital Signs
Initial and Last Documented VS:
Initial Vital Signs
Temp Pulse Resp BP Pulse Ox
97.9 F 107 18 163/107 95
03/10/25 02:54 03/10/25 02:54 03/10/25 02:54 03/10/25 02:54 03/10/25 02:54
Last Documented Vital Signs
Temp Pulse Resp BP Pulse Ox
97.9 F 114 13 171/110 97
03/10/25 02:54 03/10/25 11:46 03/10/25 12:00 03/10/25 06:10 03/10/25 07:44
<aKn Magdaleno MD - Last Filed: 03/10/25 10:50>
Orders/Labs/Results
Orders:
Orders
03/10/25 03:11
Ondansetron Orally Disint [Zofran Odt (Orally Disintegrating)] 4 mg .ROUTE .STK-MED ONE
03/10/25 03:14
CMP [Comprehensive Metabolic Panel] Urgent
Complete Blood Count/With Diff Urgent
Ondansetron Orally Disint [Zofran Odt (Orally Disintegrating)] 4 mg PO NOW STA
03/10/25 06:07
Lorazepam [Ativan] 1 mg .ROUTE .STK-MED ONE
03/10/25 06:08
Lorazepam [Ativan] 1 mg PO NOW STA
03/10/25 07:56
0.9% Sodium Chloride 1000 ml [Nss] 1,000 ml Mvi, Adult [Multivitamin] 10 ml Thiamine Injection 100 mg IV 250 mls/hr
Lorazepam [Ativan] 1 mg IV NOW STA
03/10/25 09:00
0.9% Sodium Chloride 1000 ml [Nss] 1,000 ml Mvi, Adult [Multivitamin] 10 ml Thiamine Injection 100 mg IV 250 mls/hr
03/10/25 10:55
Lorazepam [Ativan] 1 mg IV NOW STA
03/10/25 11:03
Alcohol Urgent
Drug Screen, Urine [Urine Drug Abuse Screen] Urgent
Date Specimen was Collected: 03/10/25
Time Specimen was Collected: 11:01
Abnormal Lab Results
03/10/25 03/10/25
03:14 11:03
MCH 32.8 H pg
(27.0-31.0)
BUN 7 L mg/dl
(9-20)
Glucose 105 H mg/dl
(70-99)
ALT 68 H U/L
(0-50)
Ur Barbiturates Screen Positive H
(Negative)
03/10/25 03:14
03/10/25 03:14
Vital Signs
Initial and Last Documented VS:
Initial Vital Signs
Temp Pulse Resp BP Pulse Ox
97.9 F 107 18 163/107 95
03/10/25 02:54 03/10/25 02:54 03/10/25 02:54 03/10/25 02:54 03/10/25 02:54
Last Documented Vital Signs
Temp Pulse Resp BP Pulse Ox
97.9 F 114 13 171/110 97
03/10/25 02:54 03/10/25 11:46 03/10/25 12:00 03/10/25 06:10 03/10/25 07:44
<Kaley Burks PA-C - Last Filed: 03/10/25 18:43>
MDM/Problems Addressed
Differential Diagnosis Includes:
Not limited to: Alcohol abuse, alcohol withdrawal, anxiety, etc
MDM/Problems Addressed:
55 year-old male in acute alcohol withdrawal. Long-standing history of alcohol abuse. Reports excessive drinking over past 4�6 days, last drink yesterday. He arrives hypertensive and tachycardic. On exam, he appears anxious and tremulous. He has no
nausea or vomiting by my assessment. He is cooperative, alert and oriented without any focal neurologic deficits.
Labs were sent prior to my evaluation without clinically significant abnormalities.
Patient was given IV fluids, thiamine in ED, as well as multiple doses of IV benzodiazepines to treat withdrawal. He remains mildly symptomatic and tachycardic.
Patient was seen by [facility] in ED and declines placement for inpatient detox/ rehab placement.
Ultimately - impression is acute alcohol withdrawal which will require additional management given hx. He apparently has had success with outpatient PO phenobarbital tapers prescribed his primary care provider for prior episodes of withdrawal.
I have made multiple attempts to contacts patient�s PCP to coordinate outpatient management, however, was unsuccessful.
Without plan for coordinated outpatient treatment � do not feel discharge home would be in patient�s best interest. Patient is agreeable for admission for further management of alcohol withdrawal.
Patient accepted to hospitalist service for continued management.
Chronic conditions affecting care:
Alcohol abuse
Acute Exacerbation and/or Progression of Chronic Illness:
Acute alcohol withdrawal
<Kaley Burks PA-C - Last Filed: 03/10/25 18:43>
*Pulse Oximetry
SaO2: 97
Oxygen Mode of Delivery: Room air
Patient hypoxic: no
*EKG
Interpreted by ED Provider?: NA
*Circuit Design Engineer Interpretation
Rate: tachycardiac
Interpretation: abnormal
Heart Rate: 110
Rhythm: sinus
*Critical Care Note
Total Time (30-74mins, 75-104mins- exclusive of procedures): Not Applicable
<Kaley Burks PA-C - Last Filed: 03/10/25 18:43>
Patient Management
Discussion with other providers: PCP
<Kaley Burks PA-C - Last Filed: 03/10/25 18:43>
Update Note
Update Note:
Update: Pending hospital admission � I received a call back from patient�s primary care provider, Dr. Mulligan. He is quite familiar with patient and while ultimately feels he would be best suited for long-term rehab placement � he does feel
comfortable managing his withdrawal symptoms on an outpatient basis with oral phenobarbital taper, and acamprosate.
While patient was initially agreeable for inpatient management of alcohol withdrawal � he now does not wish to stay and refuses admission. I did discuss risk of severe alcohol withdrawal and if not treated properly outpatient and ultimately
recommended admission. Patient expressed verbal understanding of associated risks however requesting discharge home. Dr. Mulligan states that he sent prescription for phenobarbital and will follow with him very closely outpatient. Patient was
provided multiple resources for alcohol abuse treatment options. Strict return precautions discussed with patient who expressed verbal understanding.
ED Attending Note
<Kaley Burks PA-C - Last Filed: 03/10/25 18:43>
-
Portions of this chart may have been created with voice recognition software.� Occasional wrong word or��sound alike� substitutions may have occurred due to the inherent limitations of voice recognition software.
<Kan Magdaleno MD - Last Filed: 03/10/25 10:50>
ED Attending Note
Patient seen and examined by attending physician: Yes
ED Attending Note:
I have seen and evaluated the patient with a [id number] encounter. I have spoken to the advance practicer provider and involved in the medical history, the physical exam, medical decision making.
Evaluation and management service: agree unless noted differently below.
Results interpretation: agree unless noted differently below.
Focused HPI: 55-year-old male with long history of alcohol abuse presents for alcohol withdrawal symptoms. He says that he had been sober for 2 months on it sounds like daily phenobarbital prescribed by an addiction medicine specialist who patient
cites as his primary care physician. He says he stopped taking the phenobarbital few days ago because he started drinking heavily again. Last drink was around 2 or 3 AM. He says that he started to have panicky symptoms overnight and has been very
tremulous, nauseated, anxious since. No vomiting. No diaphoresis. He says he has a long history of alcohol with similar symptoms. He says that he does wish to try alcohol cessation again but does not wish for inpatient detox/rehab.
Physical exam: Awake and alert, somewhat anxious appearing. Hypertensive and tachycardic. Not diaphoretic, mildly tremulous. He is oriented with reasonable insight.
Medical Decision Makin-year-old male presents with alcohol withdrawal symptoms. Started drinking heavily again after roughly 2 months sober. He says he had been stable on chronic phenobarbital interestingly. It sounds like he tapered down
intake after very heavy alcohol intake over the past few days and started to have some withdrawal symptoms overnight. He does appear to be in mild to moderate alcohol withdrawal. Treated with benzodiazepines here. I had a long discussion with the
patient about his goals�he wishes to stop drinking again�he says he does not plan to go home and drink. He is not interested in detox/rehab despite being offered by [facility] here. I offered him admission here for monitoring of withdrawal in the
hospital. I also offered discharge on benzo taper. He is not interested in either he says that he wants to try to go back on phenobarbital on an outpatient basis but that he does not have adequate prescription at home. I explained to him that
this is not something we routinely do in this emergency department however we will try to coordinate with his outpatient physician if possible.
Patient remains hypertensive and tachycardic; he is very resistant to outpatient treatment with benzodiazepines overnight will coordinate with his outpatient addiction medicine specialist. He seems very forthcoming in his efforts to once again stop
drinking and I am concerned that clinically his withdrawal is generally worsening requiring multiple rounds of benzos here. Suspect that he will continue to have significant withdrawal symptoms and I think he should be admitted for continued
monitoring and treatment of alcohol withdrawal at this point.
Discharge Plan
Departure
Patient Disposition: Home (Routine Discharge)
Date of Disposition: 03/10/25
Time of Disposition: 10:56
Patient with high blood pressure during this ER visit?: Yes
Discharge Problem:
Alcohol withdrawal
Instructions: Alcohol Withdrawal (DC), Alcohol Use Disorder (DC), BLOOD PRESSURE
Prescriptions:
No Action
losartan-hydrochlorothiazide 100-25 mg Tablet
1 tab PO DAILY
Theragen Tablet
1 tab PO DAILY
magnesium hydroxide [Ingram Milk of Magnesia] 400 mg/5 mL Suspension
15 ml PO DAILY PRN (Reason: constipation)
vitamin B complex Tablet
1 tab PO DAILY
cholecalciferol (vitamin D3) 25 mcg (1,000 unit) Tablet
25 mcg PO DAILY
omega [id number]-fish oil [Fish Oil] 1,000 (120-180) mg Capsule
1 cap PO DAILY
testosterone 20.25 mg/1.25 gram (1.62 %) Gel In Metered-Dose Pump
2 pump TOPICAL DAILY
Patient Comments:
03/10/2025, pt. applies 2 pumps to both arms daily per pt.
magnesium oxide 400 mg magnesium Tablet
400 mg PO DAILY
ibuprofen-acetaminophen [Advil Dual Action] 125-250 mg Tablet
2 tab PO BID
ibuprofen-acetaminophen [Advil Dual Action] 125-250 mg Tablet
2 tab PO DAILYPRN PRN (Reason: mild pain)
Zepbound 7.5 mg/0.5 mL Pen Injector
7.5 mg SC WE
Referrals:
[facility] [Other]
Dr. Mulligan [Other] - Follow up in 2-3 days
NONE,* [Family Provider, Internal Medicine]
Activity Restrictions/Additional Instructions:
RETURN TO THE EMERGENCY DEPARTMENT WITH ANY PERSISTENT ANXIETY, RESTLESSNESS, TREMORS, CHEST PAIN OR SHORTNESS OF BREATH, VISUAL/AUDITORY HALLUCINATIONS, INTRACTABLE VOMITING OR SEVERE HEADACHE, SEIZURES, SIGNS OF SEVERE ALCOHOL WITHDRAWAL, OR ANY
OTHER CONCERN
- As discussed�it was recommended that you stay in the hospital for treatment of your alcohol withdrawal.
- Please take your medications as prescribed by your primary care provider including phenobarbital. Please stay well-hydrated.
- Follow-up with your primary care provider in a few days for further management.
Monitor your symptoms very closely and return to the emergency department with any acute worsening/new symptoms or other concerns
Interventions
Interventions:
*General Assessment Last Done: 03/10/25 05:01
*Neglect/Abuse Screening Last Done: 03/10/25 05:01
*ED COVID-19 Vaccine History Last Done: 03/10/25 05:01
*ED Influenza Vaccine History Last Done: 03/10/25 05:01
[facility] Fall Risk Assessment Tool Last Done: 03/10/25 05:03
*Risk Screen - Suicide (C-SSRS) Last Done: 03/10/25 02:54
*Nursing Disposition Last Done: 03/10/25 12:17
ED- Neurological Assessment Last Done: 03/10/25 05:01
ED-Psychological Assessment Last Done: 03/10/25 05:01
Discharge Date and Time
Discharge Date/Time: 03/10/25 12:18
Print Language: PUERTO RICAN
[2025-03-10] MEDS: MULTIVITAMIN 1011 MG IV ×2 (08:15→08:54)
[2025-03-10] MEDS: MULTIVITAMIN 1011 ML IV ×2 (08:15→08:54)
[2025-03-10] MEDS: ATIVAN 1 MG IV ×2 (08:41→11:09)
== END 2025-03-10 12:18 | disposition home or self-care (01) ==
LOC: EMR 02:46
PROVIDERS: Emergency Medicine; EMERGENCY PHYSICIAN Emergency Medicine
DX: F10.139 Alcohol abuse with withdrawal, unspecified (principal)
CPT/HCPCS: 99284; 96365; 96366 ×3; 80053; 80306; 82077; 85025